=== PATIENT | female | born 1930 | race Caucasian/White ===

== ENCOUNTER → 2017-03-01 | Outpatient (CLI) | payer MEDICARE, OTHER ==
--- NOTE | 2017-03-01 14:50 | RADRPT ---
PROCEDURE: XR Hip. CLINICAL INDICATION: Pain. TECHNIQUE: AP and frog lateral views of the right hip were performed. COMPARISON: No. FINDINGS: There are degenerative changes of the right hip with joint space narrowing. There spurs off the mar gin of the right femoral head and right acetabulum. IMPRESSION: 1. Osteoarthritis of the right hip with moderately severe joint space narrowing. RPTAT:AAJJ Physician Anitra Date Time Electronically viewed and signed by Ad Morin Physician on 03/01/2017 14:50 TERRI/
--- NOTE | 2017-03-01 16:23 | RADRPT ---
PROCEDURE: XR Pelvis. CLINICAL INDICATION: Hip pain TECHNIQUE: Single AP view performed. COMPARISON: No prior studies are available for comparison. FINDINGS: There is moderate to severe right hip osteoarthrosis. This is associated with joint space narrowing, subchondral sclerosis, subchondral cyst formation and osteophytosis. There is normal osseous waste examiner alization. No fractures or osseous lesions are identified. The soft tissues are unremarkable. IMPRESSION: Moderate to severe right hip osteoarthrosis. RPTAT: HGDB .Satnam Franklin MD, Date Time Electronically viewed and signed by .Satnam Franklin MD, on 03/01/2017 16:23 .B/
== END | disposition home or self-care (01) ==
LOC: HKI 13:00
PROVIDERS: ATTEND Internal Medicine
DX: M25.551 Pain in right hip (principal); M16.11 Unilateral primary osteoarthritis, right hip
CPT/HCPCS: 72170; 73502; G0463